=== PATIENT | female | born 1935 | race Caucasian/White ===

== ENCOUNTER → 2017-10-09 | Outpatient (CLI) | payer OTHER | END | disposition home or self-care (01) | LOC: LAB 09:33 → LAB SHORT 09:33 | PROVIDERS: Obstetrics & Gynecology | DX: Z01.419 Encounter for gynecological examination (general) (routine) without abnormal findings (principal) | CPT/HCPCS: 87624; G0123 ==

== ENCOUNTER → 2017-10-23 | Outpatient (CLI) | payer OTHER | LOC: LAB SHORT 12:45 → LAB 12:45 | DX: N39.0 Urinary tract infection, site not specified (principal) | CPT/HCPCS: 87077; 87086; 87186 ==

== ENCOUNTER → 2017-11-20 | Outpatient (CLI) | payer OTHER | END | disposition home or self-care (01) | LOC: LAB SHORT 16:10 → LAB 16:10 | DX: R35.0 Frequency of micturition (principal) | CPT/HCPCS: 87086 ==

== ENCOUNTER → 2018-10-21 | Outpatient (CLI) | payer OTHER ==
[2018-10-23 14:08] LABS: HPV 16 Negative (Negative); HPV 18 Negative (Negative); HPV OTHER HR TYPES Negative (Negative)
== END | disposition home or self-care (01) ==
LOC: LAB 15:22 → LAB SHORT 15:22
PROVIDERS: Obstetrics & Gynecology
DX: Z91.89 Other specified personal risk factors, not elsewhere classified (principal)
CPT/HCPCS: 87624; G0123

== ENCOUNTER → 2021-08-23 | Outpatient (CLI) | payer OTHER ==
[2021-08-25 09:33] LABS: Stool Occult Bld Immuno 1 Negative (NEGATIVE)
== END | disposition home or self-care (01) ==
LOC: LAB SHORT 10:00
PROVIDERS: Family Medicine
DX: Z13.1 Encounter for screening for diabetes mellitus (principal); I10 Essential (primary) hypertension; E78.5 Hyperlipidemia, unspecified
CPT/HCPCS: 82274

== ENCOUNTER 2023-11-06 10:20 | Inpatient (IN) | payer OTHER ==
[~2023-11-06] VITALS: Ht 162.6 cm; Wt 63.5 kg
[2023-11-06] VITALS (11 sets, daily range): BP systolic 126–155; BP diastolic 56–87
[2023-11-06] MEDS ORDERED: Ondansetron HCl 2 MG / ML 2ML Vial IV PRN ×3 (10:35→21:35)
[2023-11-06 10:59] LABS: BASOPHILS ABSOLUTE AUTO 0.03 K/mm3 (0.00-0.23); BASOPHILS PERCENT AUTO 0 % (0-2); EOSINOPHILS PERCENT AUTO 0 % (0-6); Hematocrit 41.9 % (33.0-51.0); Hemoglobin 14.2 g/dL (11.5-16.0); IMMATURE GRAN ABSOLUTE AUTO 0.04 K/mm3 (0.00-0.10); IMMATURE GRAN PERCENT AUTO 0 % (0-1); LYMPHOCYTES ABSOLUTE AUTO 0.47 K/mm3 (0.84-5.20); LYMPHOCYTES PERCENT AUTO 4 % (21-46); MONOCYTES PERCENT AUTO 3 % (4-13); Mean Corpuscular HGB 30.5 pg (26.0-34.0); Mean Corpuscular HGB Conc 33.9 g/dL (31.5-36.5); Mean Corpuscular Volume 90 fL (80-100); NEUTROPHILS ABSOLUTE AUTO 12.22 K/mm3 (1.96-9.15); NEUTROPHILS PERCENT AUTO 93 % (41-73); Platelet Count 211 K/mm3 (150-400); RDW Coefficient Variation 15.4 % (11.7-14.2); RDW Standard Deviation 50.9 fL (35.1-46.3); Red Blood Cell Count 4.65 M/mm3 (3.80-5.20); White Blood Cell Count 13.16 K/mm3 (4.00-11.30)
[2023-11-06] MEDS ORDERED: NS 1,000 ML IV SCH (11:00)
[2023-11-06] MEDS ORDERED: Ketorolac Tromethamine 30mg Vial IV ONE (11:00)
[2023-11-06] MEDS ORDERED: PROP10 PO (11:16)
[2023-11-06] MEDS ORDERED: PRAVASTATIN SOD10 M1 PO (11:16)
[2023-11-06] MEDS ORDERED: PRAVASTATIN SOD20 MG PO (11:16)
[2023-11-06] MEDS ORDERED: LOSA50 PO (11:16)
[2023-11-06] MEDS ORDERED: AMLODIPINE BES2.5 MG PO (11:16)
[2023-11-06 11:20] LABS: Albumin, Blood 3.1 g/dL (3.4-5.0); Albumin/Globulin Ratio 0.8 (0.8-1.8); Bun/Creatinine Ratio 26.8 (12.0-20.0); Calcium, Blood 9.5 mg/dL (8.5-10.1); Creatinine, Blood 0.67 mg/dL (0.40-1.00); Globulin, Blood 3.9 g/dL (2.2-4.0); Potassium, Blood 3.5 mmol/L (3.5-5.5)
[2023-11-06 11:28] LABS: BAND PERCENT MAN 4 % (0-8); BASOPHILS PERCENT MAN 0 % (0-2); EOSINOPHILS PERCENT MAN 0 % (0-6); LYMPHOCYTES ABSOLUTE MAN 0.52 K/mm3 (0.84-5.20); LYMPHOCYTES PERCENT MAN 4 % (21-46); MONOCYTES ABSOLUTE MAN 0.52 K/mm3 (0.16-1.47); MONOCYTES PERCENT MAN 4 % (4-13); SEG NEUTROPHILS PERCENT MAN 88 % (41-73); TOTAL CELLS COUNTED 100
[2023-11-06] MEDS ORDERED: CefTRIAXone Sodium 1,000 MG in NS 50 ML IV ONE (11:55)
[2023-11-06] MEDS ORDERED: Morphine Sulfate 4 MG/1 ML Injection IV ONE (11:55)
[2023-11-06] MEDS ORDERED: Bupivacaine 0.5% HCl 5 MG/ML 30MLVIAL ONE (12:49)
[2023-11-06] MEDS ORDERED: Lactated Ringer's 1,000 ML IV SCH ×3 (13:20→21:30)
[2023-11-06] MEDS ORDERED: Naloxone HCl 0.4MG / ML 1ML Vial IV PRN (13:25)
[2023-11-06] MEDS ORDERED: Acetaminophen 325 MG TABLET PO PRN (13:25)
[2023-11-06] MEDS ORDERED: Morphine Sulfate 10 MG/ML 1MLSYR IV PRN ×2 (13:25→21:30)
--- NOTE | 2023-11-06 14:41 | NUR ---
PT HERE FROM [facility] FOR [facility]. Pre-Op teaching done. Pt verbalizes understanding. History, Chart, Medications and Allergies reviewed before start of procedure. LAST FOOD AT 0900 OATMEAL W/MILK "A FEW LITTLE AMOUNT" TODAY SIPS OF WATER AT 1330
[2023-11-06] MEDS ORDERED: CeFAZolin Sodium 2,000 MG in NS 100 ML IV SCH (14:55)
--- NOTE | 2023-11-06 15:07 | NUR ---
D/T TO PT'S NPO STATUS SURGERY TO BE DELAYED UNTIL 170
--- NOTE | 2023-11-06 15:08 | NUR ---
PER DR. VAUGHN
[2023-11-06] MEDS ORDERED: FentaNYL Citrate 50 MCG/ML 2 ML Injection ONE ×2 (19:43→20:28)
[2023-11-06] MEDS ORDERED: Rocuronium Bromide 10 MG/ML 5ML Injection IV ONE (19:43)
[2023-11-06] MEDS ORDERED: CeFAZolin Sodium 2,000 MG VIAL ONE (19:43)
[2023-11-06] MEDS ORDERED: propofoL 20 ML IV ONE (19:43)
[2023-11-06] MEDS ORDERED: Phenylephrine HCl 100 MCG/ML-NS 10MLSYR (1MG/10ML) ONE (19:53)
--- NOTE | 2023-11-06 19:54 | NUR ---
SHIFT SUMMARY PAIN HAS BEEN MANAGED WITHOUT PAIN MEDICATION. PT TAKEN TO OR THIS EVENING. REPORT GIVEN TO SCOTTIE MORTENSEN.
[2023-11-06] MEDS ORDERED: Vasopressin 20 UNITS/ML 1ML Vial ONE (19:58)
[2023-11-06] MEDS ORDERED: Dexamethasone Sod Phos 10 MG/ML 1ML VIAL ONE (20:14)
[2023-11-06] MEDS ORDERED: Metoclopramide HCl 5MG / ML 2ML Vial ONE (20:14)
[2023-11-06] MEDS ORDERED: Ondansetron HCl 2 MG / ML 2ML Vial ONE (20:14)
[2023-11-06] MEDS ORDERED: Pravastatin Sodium 20 MG Tab PO SCH (21:00)
[2023-11-06] MEDS ORDERED: Docusate Sodium 100 MG Cap PO SCH (21:00)
[2023-11-06] MEDS ORDERED: Sugammadex Sodium 200 MG/2ML SDV (100 MG/ML) ONE (21:12)
[2023-11-06] MEDS ORDERED: HYDROcodone 5-APAP 325 TAB PO PRN (21:30)
[2023-11-06] MEDS ORDERED: Prochlorperazine Edisylate 10 mg Vial IV PRN (21:35)
[2023-11-06] MEDS ORDERED: HydrALAZINE HCl 20 MG / ML 1ML Vial IV PRN (21:35)
[2023-11-06] MEDS ORDERED: Labetalol HCL 5 MG/ML 4ML Injection (Single Dose) IV PRN (21:35)
[2023-11-06] MEDS ORDERED: Atropine Sulfate 0.1 MG/ML 10ML SYR IV PRN (21:35)
[2023-11-06] MEDS ORDERED: Metoclopramide HCl 5MG / ML 2ML Vial IV PRN (21:35)
[2023-11-06] MEDS ORDERED: HYDROmorphone HCl/Pf 1MG SYR IV PRN ×2 (21:40)
[2023-11-06] MEDS ORDERED: Meperidine HCl 50 MG/ML 1ML Injection IV PRN (21:40)
[2023-11-06] MEDS ORDERED: FentaNYL Citrate 50 MCG/ML 2 ML Injection IV PRN ×2 (21:40)
[2023-11-06] MEDS ORDERED: LevoFLOXacin 500MG/D5W 100ML 100 ML IV SCH (22:00)
[2023-11-07 00:52] VITALS: BP 138/75
[2023-11-07 03:11] VITALS: BP 117/64
--- NOTE | 2023-11-07 06:01 | NUR ---
SUMMARY PT WITH NO C/O NAUSEA,TOLERATED SIPS H20.BRP WITH SBA FOR VOIDNG CLR URINE. SMALL AMNT SEROUS DRNG R UPPER LAPSITE AND MILD SWELLING NOTED.4X4 PLACED AND IS DRY AT PRESENT.
[2023-11-07 06:28] LABS: Hematocrit 37.7 % (33.0-51.0); Hemoglobin 12.3 g/dL (11.5-16.0); Mean Corpuscular HGB 29.8 pg (26.0-34.0); Mean Corpuscular HGB Conc 32.6 g/dL (31.5-36.5); Mean Corpuscular Volume 91 fL (80-100); Mean Platelet Volume 10.3 fL (9.1-12.4); Platelet Count 172 K/mm3 (150-400); RDW Coefficient Variation 15.3 % (11.7-14.2); RDW Standard Deviation 51.4 fL (35.1-46.3); Red Blood Cell Count 4.13 M/mm3 (3.80-5.20); White Blood Cell Count 10.23 K/mm3 (4.00-11.30)
[2023-11-07 06:49] LABS: Albumin, Blood 2.3 g/dL (3.4-5.0); Albumin/Globulin Ratio 0.6 (0.8-1.8); Bilirubin, Total 0.5 mg/dL (0.1-1.0); Bun/Creatinine Ratio 28.5 (12.0-20.0); Calcium, Blood 9.2 mg/dL (8.5-10.1); Creatinine, Blood 0.67 mg/dL (0.40-1.00); Globulin, Blood 3.6 g/dL (2.2-4.0); Potassium, Blood 4.2 mmol/L (3.5-5.5); Total Protein, Blood 5.9 g/dL (6.4-8.2)
[2023-11-07 06:56] LABS: BAND PERCENT MAN 7 % (0-8); BASOPHILS PERCENT MAN 0 % (0-2); EOSINOPHILS PERCENT MAN 1 % (0-6); LYMPHOCYTES ABSOLUTE MAN 0.71 K/mm3 (0.84-5.20); LYMPHOCYTES PERCENT MAN 7 % (21-46); MONOCYTES PERCENT MAN 3 % (4-13); SEG NEUTROPHILS PERCENT MAN 82 % (41-73); TOTAL CELLS COUNTED 100
[2023-11-07 07:12] VITALS: BP 124/66
[2023-11-07] MEDS ORDERED: Losartan Potassium 50 MG Tab PO SCH (09:00)
[2023-11-07] MEDS ORDERED: Enoxaparin 40 MG/0.4 ML SYR SC SCH (09:00)
[2023-11-07] MEDS ORDERED: Propranolol HCL 20 MG TAB PO SCH (09:00)
[2023-11-07] MEDS ORDERED: AmLODIPine Besylate 5 MG Tab PO SCH ×2 (09:00)
--- NOTE | 2023-11-07 09:30 | NUR ---
WHEN DR. STEELE ROUNDED THIS AM HE WAS NOTIFIED OF DRAINAGE FROM RUQ INCISION SITE REPORTED TO THIS RN BY NEY RUBIN RN.
[2023-11-07 15:14] VITALS: BP 162/61
--- NOTE | 2023-11-07 16:33 | NUR ---
SHIFT SUMMARY PT IS POD#1 [address] [facility] WITH [address] STEELE. PT HAS TOLERATED FLUIDS AND SMALL AMOUNTS OF FOOD, PT REPORTS HAVING A DECREASED APPETITE. PAIN MANAGED WITH TYLENOL. PT HAS BEEN A MINIMAL ASSIST T/O THE DAY. PT USES CALL LIGHT APPROPRIATELY.
--- NOTE | 2023-11-07 16:56 | NUR ---
Pt. is awake in bed and welcomes my visit. Pt. is pleasant. Facilitated a life review and considered matters of tawny and belief. Rapport is established in the process. Pt. displays evidence of being aware and engaged. Pt. verbalizeed about the need to take care of an adult daughter. Listened with interest and empathy. Prayed with Pt. Pt. verbalized gratitude for the spiritual care visit.
[2023-11-07 21:01] VITALS: BP 147/64
[2023-11-08 03:07] VITALS: BP 175/73
--- NOTE | 2023-11-08 04:40 | NUR ---
SHIFT SUMMARY POD 2 LAP SILVESTRE PT ABLE TO REST DURING THE NIGHT. PAIN MANAGED PER EMAR. LX4 LAP SITES CLOSED WITH GLUE. NO DRAINAGE FROM THE RLQ LAP SITES TONIGHT. PT PASSING GAS, NO BM TONIGHT. TOLERATING PO INTAKE. VSS NO OTHER CONCERNS AT THIS TIME, CALL LIGHT WIHTHIN REACH
[2023-11-08 06:10] LABS: Mean Corpuscular HGB 29.3 pg (26.0-34.0); Mean Corpuscular HGB Conc 32.4 g/dL (31.5-36.5); Mean Corpuscular Volume 90 fL (80-100); Mean Platelet Volume 10.6 fL (9.1-12.4); Platelet Count 178 K/mm3 (150-400); RDW Standard Deviation 50.4 fL (35.1-46.3); Red Blood Cell Count 3.76 M/mm3 (3.80-5.20); White Blood Cell Count 10.11 K/mm3 (4.00-11.30)
[2023-11-08 06:36] LABS: Albumin, Blood 2.1 g/dL (3.4-5.0); Albumin/Globulin Ratio 0.6 (0.8-1.8); Bilirubin, Total 0.4 mg/dL (0.1-1.0); Bun/Creatinine Ratio 25.2 (12.0-20.0); Calcium, Blood 8.9 mg/dL (8.5-10.1); Creatinine, Blood 0.56 mg/dL (0.40-1.00); Globulin, Blood 3.6 g/dL (2.2-4.0); Potassium, Blood 3.6 mmol/L (3.5-5.5); Total Protein, Blood 5.7 g/dL (6.4-8.2)
[2023-11-08 07:30] VITALS: BP 186/77
--- NOTE | 2023-11-08 08:50 | NUR ---
ROUNDING: HOSPITALIST AND DR STEELE IN TO SEE PATIENT. PLAN TO GO HOME LATER TODAY.
[2023-11-08] MEDS ORDERED: Losartan Potassium 50 MG Tab PO SCH (09:00)
[2023-11-08] MEDS ORDERED: AmLODIPine Besylate 5 MG Tab PO SCH (09:00)
[2023-11-08] MEDS ORDERED: LEVFLO500 PO (11:58)
[2023-11-08] MEDS ORDERED: VISBIOME 112.51 EACH PO (12:04)
[2023-11-08] MEDS ORDERED: Acetaminophen650 M1 PO (12:07)
--- NOTE | 2023-11-08 13:00 | NUR ---
DISCHARGE: PT DC TO HOME AT THIS TIME WITH DAUGHTER. VERBALIZED UNDERSTANDING OF INSTRUCTIONS, FOLLOW UP, PROBLEMS TO REPORT AND MEDICATIONS. IV DC'D WNL. PT LEFT VIA WHEELCHAIR TO CAR WITH BELONGINGS.
== END 2023-11-08 13:13 | disposition home or self-care (01) | DRG 419 ==
LOC: ER 10:20 → SURS 10:21 → ER 14:30 → SURS 15:26
PROVIDERS: Family Medicine; Student in an Organized Health Care Education/Training Program; Surgery; ADMIT Hospitalist
PROC: BF502Z0 Other Imaging of Bile Ducts using Fluorescing Agent, Intraoperative (ICD-10-PCS; 2023-11-06)
PROC: 0FT44ZZ Resection of Gallbladder, Percutaneous Endoscopic Approach (ICD-10-PCS; principal; 2023-11-06 16:00)
DX: K81.0 Acute cholecystitis (principal); K82.A1 Gangrene of gallbladder in cholecystitis; I10 Essential (primary) hypertension; R73.9 Hyperglycemia, unspecified; I49.3 Ventricular premature depolarization; Z88.0 Allergy status to penicillin; Z87.891 Personal history of nicotine dependence; Z96.1 Presence of intraocular lens; Z96.643 Presence of artificial hip joint, bilateral
CPT/HCPCS: 36415; 74300; 76705; 80053; 83690; 83735; 85025; 85027; 88304; 93005; 93010; 94762; 96361; 96365; 96366; 96367; 96372; 96375; 97110; 97116; 97162; 97165; 97535; 99285-25; A9270; G0378; J0690; J0696; J1100; J1650; J1885; J1956; J2270; J2371; J2405; J2704; J2765; J3010; J7030; J7120

== ENCOUNTER 2025-05-01 15:01 | Emergency (ER) | payer OTHER ==
[~2025-05-01] VITALS: Ht 162.6 cm; Wt 63.5 kg
[~2025-05-01 15:01] MED LIST: AMLODIPINE BES2.5 MG PO; Acetaminophen650 M1 PO; LEVFLO500 PO; LOSA50 PO; PRAVASTATIN SOD10 M1 PO; PRAVASTATIN SOD20 MG PO; PROP10 PO; VISBIOME 112.51 EACH PO
[2025-05-01 15:43] LABS: BASOPHILS ABSOLUTE AUTO 0.04 K/mm3 (0.00-0.23); BASOPHILS PERCENT AUTO 1 % (0-2); EOSINOPHILS ABSOLUTE AUTO 0.17 K/mm3 (0.00-0.68); EOSINOPHILS PERCENT AUTO 3 % (0-6); Hematocrit 35.3 % (33.0-51.0); Hemoglobin 11.7 g/dL (11.5-16.0); IMMATURE GRAN ABSOLUTE AUTO 0.05 K/mm3 (0.00-0.10); IMMATURE GRAN PERCENT AUTO 1 % (0-1); LYMPHOCYTES ABSOLUTE AUTO 1.23 K/mm3 (0.84-5.20); LYMPHOCYTES PERCENT AUTO 20 % (21-46); MONOCYTES ABSOLUTE AUTO 0.68 K/mm3 (0.16-1.47); MONOCYTES PERCENT AUTO 11 % (4-13); Mean Corpuscular HGB Conc 33.1 g/dL (31.5-36.5); Mean Corpuscular Volume 92 fL (80-100); NEUTROPHILS ABSOLUTE AUTO 3.95 K/mm3 (1.96-9.15); NEUTROPHILS PERCENT AUTO 65 % (41-73); NRBC ABSOLUTE 0.00 K/mm3 (0.00-0.02); NRBC Auto 0.0 /100 WBC (0.0-0.2); Platelet Count 195 K/mm3 (150-400); RDW Coefficient Variation 15.1 % (11.7-14.2); RDW Standard Deviation 51.5 fL (35.1-46.3)
[2025-05-01 15:58] LABS: Alanine Aminotransfer (ALT/SGP 17.0 U/L (12-78); Albumin, Blood 2.7 g/dL (3.4-5.0); Albumin/Globulin Ratio 1.1 (0.8-1.8); Anion Gap 6.0 mmol/L (3-11); Aspartate Aminotrans (AST/SGOT 14.0 U/L (12-37); Bilirubin, Total 0.3 mg/dL (0.1-1.0); Blood Urea Nitrogen 10.0 mg/dL (8-24); CO2, Blood 27.0 mmol/L (21-32); Calcium, Blood 8.3 mg/dL (8.5-10.1); Chloride, Blood 110.0 mmol/L (98-108); Creatinine, Blood 0.69 mg/dL (0.40-1.00); Globulin, Blood 2.5 g/dL (2.2-4.0); Glucose, Blood 115.0 mg/dL (70-99); Potassium, Blood 3.7 mmol/L (3.5-5.5); Sodium, Blood 139.0 mmol/L (136-145); Total Protein, Blood 5.2 g/dL (6.4-8.2)
[2025-05-01 16:47] VITALS: BP 135/71
== END 2025-05-01 16:51 | disposition home or self-care (01) ==
LOC: ER 15:01
PROVIDERS: Emergency Medicine
DX: T14.8XXA Other injury of unspecified body region, initial encounter (principal); R55 Syncope and collapse; I10 Essential (primary) hypertension; E78.5 Hyperlipidemia, unspecified; W18.30XA Fall on same level, unspecified, initial encounter
CPT/HCPCS: 80053; 85025; 93005; 93010; 99284-25

== ENCOUNTER 2025-05-03 14:39 | Emergency (ER) | payer OTHER ==
[~2025-05-03] VITALS: Ht 162.6 cm; Wt 63.5 kg
[2025-05-03] MEDS ORDERED: Ketorolac Tromethamine 30mg Vial IM ONE (15:35)
[2025-05-03] MEDS ORDERED: OXYC5 PO (17:19)
[2025-05-03 17:45] VITALS: BP 155/69
== END 2025-05-03 17:46 | disposition home or self-care (01) ==
LOC: ER 14:39
DX: S30.0XXA Contusion of lower back and pelvis, initial encounter (principal); S09.90XA Unspecified injury of head, initial encounter; W18.30XA Fall on same level, unspecified, initial encounter; Z88.0 Allergy status to penicillin; Z79.899 Other long term (current) drug therapy
CPT/HCPCS: 70450; 72170; 96372; 99284-25; J1885

== ENCOUNTER 2025-05-09 09:25 | Emergency (ER) | payer OTHER ==
[~2025-05-09] VITALS: Ht 165.1 cm; Wt 72.6 kg
[~2025-05-09 09:25] MED LIST changes: +OXYC5 PO
[2025-05-09] MEDS ORDERED: HYDROmorphone HCl/Pf 1MG SYR IM ONE ×2 (10:20→15:00)
[2025-05-09] MEDS ORDERED: CYCL10 PO (11:01)
[2025-05-09] MEDS ORDERED: TIZANIDINE HCL213 PO (11:44)
[2025-05-09] MEDS ORDERED: PRAVASTATIN SOD20 MG PO (11:45)
[2025-05-09 15:05] VITALS: BP 162/63
[2025-05-09] MEDS ORDERED: ONDA4ODT MM (15:15)
[2025-05-09] MEDS ORDERED: POLY500 PO (15:22)
[2025-05-09] MEDS ORDERED: SENNA LAXATIVE8.6 MG PO (15:22)
[2025-05-09] MEDS ORDERED: OXAYDO5 M1 PO (15:22)
== END 2025-05-09 15:50 | disposition home or self-care (01) ==
LOC: ER 09:25
DX: S52.031A Displaced fracture of olecranon process with intraarticular extension of right ulna, initial encounter for closed fracture (principal); Z88.0 Allergy status to penicillin; Z79.899 Other long term (current) drug therapy; W19.XXXA Unspecified fall, initial encounter
CPT/HCPCS: 73080; J1171